=== PATIENT | female | born 1960 | race Caucasian/White ===

== ENCOUNTER 2021-04-26 17:25 | Emergency (ER) | payer MEDICAID, OTHER ==
[~2021-04-26] VITALS: Ht 152.4 cm; Wt 59.0 kg
[2021-04-26 17:32] VITALS: BP 170/97
--- NOTE | 2021-04-26 17:51 | NUR ---
DR LYONS AT BEDSIDE EXAMINING PT
--- NOTE | 2021-04-26 17:56 | NUR ---
PATIENT PRESENTS TO ED WITH PAIN OF THE BACK AND BILATERAL FOOT SWELLING. PT STATES SWELLING X 1 MONTH. DENIES N/V/D; SKIN IS PINK/WARM/DRY; AAOX4 UNABLE TO AMBULATE; LUNGS CLEAR BL; HR EVEN AND REGULAR; PT DENIES ANY FEVER, CP, SOB, OR COUGH AT THIS TIME; PATIENT STATES PAIN OF 6/10 AT THIS TIME; VSS; PATIENT POSITIONED FOR COMFORT; HOB ELEVATED; BEDRAILS UP X2; BED DOWN. ER MD MADE AWARE OF PT STATUS. 68 Y/O MALE BIBA C/O PAIN AND LEFT LOWER LEG BLEEDING DUE TO BLISTER PATIENT POPPED EARLIER TODAY. VVS, A&OX4, HEART SOUNDS WITHIN NORMAL LIMITS, CLEAR UNLABORED BREATHING, BOWEL SOUNDS PRESENT IN ALL FOUR QUADRANTS. ROOM SAFETY CHECKS IN PLACE. SIDE RAILS UP X 2, BED LOCKED, LOWEST POSITION, CALL LIGHT WITHIN REACH. MEDHX: DM PT DENIES SURGICAL HISTORY NKDA
[2021-04-26] MEDS ORDERED: KETOROLAC 60 MG/2 ML VIAL IM ONE (18:00)
[2021-04-26] MEDS ORDERED: METF-1022 PO (18:08)
[2021-04-26] MEDS ORDERED: TRAM50TA3 PO (18:08)
--- NOTE | 2021-04-26 18:44 | NUR ---
Patient appears to be resting comfortably in bed. Vital Signs within normal limits. Respirations even and unlabored.
[2021-04-26 19:00] VITALS: BP 170/97
--- NOTE | 2021-04-26 19:00 | NUR ---
Patient discharged with v/s stable. Written and verbal after care instructions given and explained. Patient alert, oriented and verbalized understanding of instructions. Wheel Chair Assisted with to car. All questions addressed prior to discharge. ID band removed. Patient advised to follow up with PMD. Rx of METFORMIN AND TRAMADOL given. Patient educated on indication of medication including possible reaction and side effects. Opportunity to ask questions provided and answered.
== END 2021-04-26 19:00 | disposition home or self-care (01) ==
LOC: MED 17:25
DX: R60.0 Localized edema (principal); M54.50 Low back pain, unspecified; G89.29 Other chronic pain; I10 Essential (primary) hypertension; Z98.890 Other specified postprocedural states; Z79.891 Long term (current) use of opiate analgesic; Z79.899 Other long term (current) drug therapy; Z88.0 Allergy status to penicillin
CPT/HCPCS: 96372; 99283; J1885